=== PATIENT | female | born 1980 | race Caucasian/White ===

== ENCOUNTER 2018-08-13 18:19 | Emergency (ER) | payer BC ==
[~2018-08-13] VITALS: Ht 175.3 cm; Wt 81.6 kg
[2018-08-13] MEDS ORDERED: LACT10SO PO (18:31)
[2018-08-13] MEDS ORDERED: PANTOPRAZOLE (18:31)
--- NOTE | 2018-08-13 18:46 | NUR ---
PT IS IN ROOM #1B. DR BUTLER EVALUATED THE PT.
--- NOTE | 2018-08-13 19:05 | NUR ---
PT WAS D/C TO HOME. D/C INSTRUCTIONS GIVEN TO THE PT.
[2018-08-13 19:06] VITALS: BP 136/77
== END 2018-08-13 19:07 | disposition home or self-care (01) ==
LOC: ER 18:19
DX: R60.9 Edema, unspecified (principal); Z88.5 Allergy status to narcotic agent; Z88.8 Allergy status to other drugs, medicaments and biological substances
CPT/HCPCS: 99283; A4663

== ENCOUNTER 2019-10-05 08:05 | Inpatient (IN) | payer BC ==
[~2019-10-05] VITALS: Ht 175.3 cm; Wt 83.9 kg
[~2019-10-05 08:05] MED LIST: LACT10SO PO; PANTOPRAZOLE
[2019-10-05] MEDS ORDERED: FURO80TA87 PO (08:20)
[2019-10-05] MEDS ORDERED: SPIR100T5 PO (08:20)
--- NOTE | 2019-10-05 08:36 | NUR ---
PT IS A/OX4, ASSISTED INTO THE ED ON WHEELCHAIR, C/O LOW POTASSIUM PER PT'S PCP. PT REPORTS SHE RECEIVED A CALL FROM HER PCP THIS AM THAT HER POTASSIUM LEVEL WAS 2.5 AND WAS INSTRUCTED TO GO TO THE NEAREST ED. PT HAS A HX OF ETOH LIVER CIRRHOSIS AND IS JAUNDICED AT THIS TIME. PT ALSO PRESENTS W/ PETECHIAE ACROSS THE CHEST. VSS. PT DENIES PAIN, C/P, SOB, N/V/D, DIZZINESS, HEADACHE AT THIS TIME. ER MD AT BEDSIDE FOR MSE.
[2019-10-05] MEDS ORDERED: LORAZEPAM 0.5 MG TABLET PO ONE (08:45)
[2019-10-05] MEDS ORDERED: LORAZEPAM 1 MG TABLET ONE (08:49)
[2019-10-05 09:10] LABS: EOSINOPHILS % (AUTO) 1.2 % (0.0-7.0); HEMATOCRIT 24.5 % (31.2-41.9); HEMOGLOBIN 8.8 g/dL (10.9-14.3); LYMPHOCYTES # (AUTO) 0.7 K/uL (20.0-40.0); MEAN CORPUSCULAR HEMOGLOBIN 37.3 uug (24.7-32.8); MEAN CORPUSCULAR HGB CONC 36 g/dL (32.3-35.6); MEAN CORPUSCULAR VOLUME 103.6 fL (75.5-95.3); MONOCYTES # (AUTO) 0.3 K/uL (2.0-10.0); MONOCYTES % (AUTO) 8.4 % (0.0-11.0); NEUTROPHILS # (AUTO) 2.6 K/uL (1.8-8.9); NEUTROPHILS % (AUTO) 69.4 % (38.5-71.5); WHITE BLOOD COUNT (AUTO) 3.7 K/uL (3.8-11.8)
[2019-10-05 09:21] LABS: ALANINE AMINOTRANSFERASE 32 U/L (14-59); ALKALINE PHOSPHATASE 118 U/L (50-136); ASPARTATE AMINOTRANSFERASE 48 U/L (15-37); BILIRUBIN,DIRECT 10.2 mg/dL (0.0-0.2); BILIRUBIN,TOTAL 17.5 mg/dL (0.2-1.0); CARBON DIOXIDE 25 mmol/L (21-32); CHLORIDE 88 mmol/L (98-107); CREATININE 0.7 mg/dL (0.6-1.3); GLUCOSE 143 mg/dL (74-106); LIPASE 217 U/L (73-393); TOTAL PROTEIN, SERUM 4.8 g/dL (6.4-8.2); UREA NITROGEN, BLOOD 11 mg/dL (7-18)
[2019-10-05 09:33] LABS: POTASSIUM 2.2 mmol/L (3.5-5.1)
[2019-10-05] MEDS ORDERED: POTASSIUM CHLORIDE 20 MEQ TAB.PRT.SR ONE (09:37)
[2019-10-05 09:39] LABS: RED BLOOD CELL COUNT(AUTO) 2.36 MIL/uL (3.63-4.92)
[2019-10-05 09:40] LABS: PLATELET COUNT (AUTO) 33 K/uL (179-408)
[2019-10-05] MEDS ORDERED: IV NS + KCL 40 MEQ 1000 ML BAG IV ONE (09:45)
[2019-10-05] MEDS ORDERED: POTASSIUM CHLORIDE 20 MEQ TAB.PRT.SR PO ONE (09:45)
[2019-10-05 09:46] LABS: MONOCYTES % (MANUAL) 8 % (2-10); NEUTROPHILS % (MANUAL) 72 % (42-75)
[2019-10-05 09:47] LABS: EOSINOPHILS % (MANUAL) 1 % (0-8); LYMPHOCYTES % (MANUAL) 19 % (20-40)
--- NOTE | 2019-10-05 09:50 | NUR ---
CALLED [facility] FOR PANEL CALL. AWAITING CALLBACK. ATTEMPT 1.
[2019-10-05] MEDS ORDERED: GABA600T12 PO (10:03)
[2019-10-05] MEDS ORDERED: LACT10SO PO (10:03)
[2019-10-05] MEDS ORDERED: FOLIC ACID PO (10:03)
[2019-10-05] MEDS ORDERED: DIPH25CA83 PO (10:03)
[2019-10-05] MEDS ORDERED: THIA100T13 PO (10:03)
[2019-10-05] MEDS ORDERED: FURO-151 PO (10:03)
[2019-10-05] MEDS ORDERED: MULT1CAP34 PO (10:03)
[2019-10-05] MEDS ORDERED: RIFA550T PO (10:03)
[2019-10-05] MEDS ORDERED: PANT40TA4 PO (10:03)
[2019-10-05] MEDS ORDERED: VITAMIN B2 PO (10:03)
--- NOTE | 2019-10-05 10:57 | NUR ---
ADMITTING REPORT GIVEN TO ANDREIA GEIGER.
--- NOTE | 2019-10-05 11:28 | NUR ---
Pt. admitted to TELE 317, under care of OBED ZAMUDIO. Belongs List completed
--- NOTE | 2019-10-05 11:28 | NUR ---
KCL IN NS INFUSING VIA 22G IV ACCESS IN R HAND. ENDORSED TO FLOOR RN, ADMITTING RN WILL COMPLETE INFUSION.
[2019-10-05 11:52] VITALS: BP 109/51
[2019-10-05 13:22] LABS: MAGNESIUM 1.7 mg/dL (1.8-2.4); PHOSPHOROUS 3.8 mg/dL (2.5-4.9)
[2019-10-05] MEDS ORDERED: ZOLPIDEM 5 MG TABLET PO PRN (13:30)
[2019-10-05] MEDS ORDERED: ONDANSETRON 4 MG/2 ML VIAL IV PRN (13:30)
[2019-10-05] MEDS ORDERED: ACETAMINOPHEN 325 MG TABLET PO PRN (13:30)
[2019-10-05] MEDS ORDERED: diphenhydrAMINE 25 MG CAP PO PRN (13:30)
[2019-10-05] MEDS ORDERED: Z GUARD REMEDY PASTE 57 GM TUBE TOP PRN (13:30)
[2019-10-05] MEDS ORDERED: MAGNESIUM HYDROXIDE 30 ML LIQUID UDC PO PRN (13:30)
[2019-10-05 15:10] VITALS: BP 104/50
[2019-10-05 16:17] LABS: *BILIRUBIN,URIN 3+ (NEGATIVE); *BLOOD, URINE NEGATIVE (NEGATIVE); *CLARITY,URINE CLEAR (CLEAR); *KETONES,URINE 1+ (NEGATIVE); *UROBILINOGEN,URINE 0.2 E.U./dl (NORMAL); LEUKOCYTE ESTERASE ,URINE NEGATIVE (NEGATIVE); NITRITE, URINE NEGATIVE (NEGATIVE); PH,URINE 6.5 (5.0-8.0); UGLUCOSE NEGATIVE (NEGATIVE)
[2019-10-05] MEDS: MAGNESIUM SULFATE/D5W 100 ML IV SCH ×2 (16:19→17:50)
[2019-10-05 16:25] LABS: *COLOR,URINE Orange (YELLOW)
[2019-10-05 16:26] LABS: MUCUS,URINE MODERATE /LPF (0-FEW); SQUAMOUS EPITHELIAL CELL,UR FEW /HPF (NONE SEEN); WBC,URINE 0-3 /HPF (0-3)
[2019-10-05] MEDS: LACTULOSE 20 G/30 ML LIQUID UDC PO SCH (16:57)
[2019-10-05] MEDS: GABAPENTIN 300 MG CAPSULE PO SCH (16:57)
[2019-10-05] MEDS: RIFAXIMIN 550 MG TABLET PO SCH (16:57)
[2019-10-05] MEDS ORDERED: Medication Not On Formulary EA (Lactulose (Duphalac) 20 GM) PO SCH (17:00)
[2019-10-05] MEDS ORDERED: Medication Not On Formulary EA (Gabapentin 600 MG) PO SCH (17:00)
--- NOTE | 2019-10-05 17:09 | NUR ---
Pt. resting in bed alert oriented x4. Pt. has iv in R hand 22 gauge intact patent running Kcl 125 mls/hr. Pt. appears jaundice. Pt. denies pain/ discomfort. Pt. denies SOB/ difficulty breathing. safety measures in place. call light within reach. will continue to monitor pt.
[2019-10-05 20:00] VITALS: BP 110/58
[2019-10-05 22:56] LABS: *URINE HCG, QUAL NEGATIVE (NEGATIVE)
[2019-10-06 00:10] VITALS: BP 104/41
--- NOTE | 2019-10-06 00:15 | NUR ---
Dr Lewis notified of patient's increased anxiety, requesting for calming medication. Ativan 1 mg PO ordered.
[2019-10-06] MEDS ORDERED: LORAZEPAM 1 MG TABLET PO PRN (00:30)
[2019-10-06] MEDS: LACTULOSE 20 G/30 ML LIQUID UDC PO SCH ×3 (00:37→16:54)
[2019-10-06] MEDS: POTASSIUM CHLORIDE 40 MEQ in IV NS 1000 ML 1,000 ML IV PRN ×2 (02:01→11:40)
--- NOTE | 2019-10-06 02:30 | NUR ---
Pt remains unable to sleep. Provided all comfort measures, changed linens, provided pillow paddings to both elbows, bilateral knees, and rolled blankets on heels. Kept fluids to minimum but patient consumed about 200cc fluid since midnight. Pt complaining that she feels restless and wants to sleep. Onel given, will continue to monitor.
[2019-10-06 04:00] VITALS: BP 105/54
[2019-10-06 06:47] LABS: ALANINE AMINOTRANSFERASE 35 U/L (14-59); ALKALINE PHOSPHATASE 102 U/L (50-136); ASPARTATE AMINOTRANSFERASE 48 U/L (15-37); BILIRUBIN,TOTAL 16.7 mg/dL (0.2-1.0); CARBON DIOXIDE 27 mmol/L (21-32); CHLORIDE 90 mmol/L (98-107); CHOLESTEROL < 50 mg/dL (<200); CREATININE 0.6 mg/dL (0.6-1.3); GLUCOSE 120 mg/dL (74-106); HDL CHOLESTEROL 17 mg/dL (40-60); MAGNESIUM 2.1 mg/dL (1.8-2.4); PHOSPHOROUS 3.3 mg/dL (2.5-4.9); POTASSIUM 3.3 mmol/L (3.5-5.1); TOTAL PROTEIN, SERUM 4.7 g/dL (6.4-8.2); TRIGLYCERIDES 38 MG/DL (30-150); UREA NITROGEN, BLOOD 9 mg/dL (7-18)
[2019-10-06 06:48] LABS: BASOPHILS % (AUTO) 0.5 % (0.0-2.0); EOSINOPHILS % (AUTO) 1.3 % (0.0-7.0); HEMATOCRIT 23.1 % (31.2-41.9); HEMOGLOBIN 8.3 g/dL (10.9-14.3); LYMPHOCYTES # (AUTO) 0.7 K/uL (20.0-40.0); MEAN CORPUSCULAR HEMOGLOBIN 37.4 uug (24.7-32.8); MEAN CORPUSCULAR HGB CONC 36 g/dL (32.3-35.6); MONOCYTES # (AUTO) 0.3 K/uL (2.0-10.0); MONOCYTES % (AUTO) 8.5 % (0.0-11.0); NEUTROPHILS # (AUTO) 2.1 K/uL (1.8-8.9); NEUTROPHILS % (AUTO) 66.7 % (38.5-71.5); WHITE BLOOD COUNT (AUTO) 3.1 K/uL (3.8-11.8)
[2019-10-06 06:56] LABS: RED BLOOD CELL COUNT(AUTO) 2.22 MIL/uL (3.63-4.92)
[2019-10-06 06:59] LABS: PLATELET COUNT (AUTO) 33 K/uL (179-408)
--- NOTE | 2019-10-06 07:02 | NUR ---
Critical lab results platelets: 33. Same value as yesterday. paged thru EPIC line to notify him per facility protocols.
[2019-10-06 07:10] LABS: THYROID STIMULATING HORMONE 1.994 mIU/mL (0.358-3.740)
--- NOTE | 2019-10-06 08:00 | NUR ---
Received patient in Bed, awake and verbally responsive. No signs of distress noted. No complain of Pain or discomfort at this time, relayed Platelet of [address] harvey, per MD NO Transfusion needed and will do transfusion is platelet below 20. Will continue to monitor.
[2019-10-06] MEDS: GABAPENTIN 300 MG CAPSULE PO SCH ×2 (08:41→16:55)
[2019-10-06] MEDS: RIFAXIMIN 550 MG TABLET PO SCH ×2 (08:42→16:55)
[2019-10-06] MEDS ORDERED: FOLIC ACID 1 MG TABLET PO SCH (09:00)
[2019-10-06] MEDS ORDERED: THIAMINE HCL 100 MG TABLET PO SCH (09:00)
[2019-10-06] MEDS ORDERED: SPIRONOLACTONE 100 MG TABLET PO SCH (09:00)
[2019-10-06] MEDS ORDERED: Medication Not On Formulary EA ([Folic Acid] 1 MG) PO SCH (09:00)
[2019-10-06] MEDS ORDERED: Medication Not On Formulary EA (Multivitamins (Multivitamin) 1 EACH) PO SCH (09:00)
[2019-10-06] MEDS ORDERED: PANTOPRAZOLE SODIUM 40 MG TABLET.DR PO SCH (09:00)
[2019-10-06] MEDS ORDERED: SPIRONOLACTONE 50 MG TABLET PO SCH (09:00)
[2019-10-06] MEDS ORDERED: MULTIVITAMINS,THERAPEUTIC TABLET PO SCH (09:00)
[2019-10-06 09:21] LABS: EOSINOPHILS % (MANUAL) 1 % (0-8); LYMPHOCYTES % (MANUAL) 22 % (20-40); MONOCYTES % (MANUAL) 9 % (2-10); NEUTROPHILS % (MANUAL) 68 % (42-75)
[2019-10-06 11:30] VITALS: BP 111/52
--- NOTE | 2019-10-06 15:20 | NUR ---
called Dr. Torres for Patient GI consult, per MD he will come to see patient tomorrow before Lunch.
[2019-10-06 15:38] VITALS: BP 111/56
--- NOTE | 2019-10-06 18:24 | NUR ---
Patient in Bed, awake and verbally responsive. No signs of distress noted. No SOB. No complain of Pain and discomfort. Patient on Strict Fluid Intake of 700/24hrs. Patient had 500 total on my Shift. STAT BMP was drawn to check Potassium level. Dr. Baeza made aware that patient wants to be discharge if Potassium level is WNL. Will Endorse to Oncoming Shift.
[2019-10-06 18:27] LABS: CARBON DIOXIDE 24 mmol/L (21-32); CHLORIDE 92 mmol/L (98-107); CREATININE 0.5 mg/dL (0.6-1.3); GLUCOSE 120 mg/dL (74-106); UREA NITROGEN, BLOOD 9 mg/dL (7-18)
[2019-10-06 19:39] VITALS: BP 113/47
--- NOTE | 2019-10-06 19:58 | NUR ---
Received patient awake in bed, noted potassium level within normal, Dr. Baeza made aware. Patient verbalized desire to go home tonight, Dr. Baeza in to see patient informed of patient's wishes. Noted with discharge order, will process discharge orders and discharge the patient accordingly.
--- NOTE | 2019-10-06 20:40 | NUR ---
Discharge paper works given to patient, patient had no further questions. IV access and tele monitor removed, ID band removed. Patient to be picked up by . Patient brought to hospital lobby via wheelchair accompanied by [employer], picked up by private care by , discharged in stable condition.
== END 2019-10-06 20:35 | disposition home or self-care (01) | DRG 640 ==
LOC: ER 08:05 → TELE3 11:21
PROVIDERS: ADMIT Hospitalist; ATTEND Hospitalist
DX: E87.1 Hypo-osmolality and hyponatremia (principal); E43 Unspecified severe protein-calorie malnutrition; G93.41 Metabolic encephalopathy; D61.818 Other pancytopenia; J98.11 Atelectasis; E51.9 Thiamine deficiency, unspecified; K70.31 Alcoholic cirrhosis of liver with ascites; E87.6 Hypokalemia; F10.11 Alcohol abuse, in remission; Y90.9 Presence of alcohol in blood, level not specified; E83.42 Hypomagnesemia; Z76.82 Awaiting organ transplant status; E86.9 Volume depletion, unspecified; R60.9 Edema, unspecified; R53.81 Other malaise; Z68.27 Body mass index [BMI] 27.0-27.9, adult
CPT/HCPCS: 36415; 70030-TC; 71045; 83690; 83735; 84100; 84443; 84703; 85025; 85730; 87086; 93005; A4663; G0378; J3475; J3480; J7030